=== PATIENT | male | born 1950 | race Caucasian/White ===

== ENCOUNTER 2022-10-23 16:08 | Emergency (ER) | payer MEDICARE ==
[~2022-10-23] VITALS: Ht 172.7 cm; Wt 83.0 kg
--- NOTE | 2022-10-23 19:01 | NUR ---
Pt placed into a hard c collar with provider present and slide board with staff onto [facility] and in room 9. No neurovascular issues pre or post c collar placement or problems with moving him over.
[2022-10-23 19:05] LABS: BASOPHILS % (AUTO) 0.5 % (0-1); EOSINOPHILS # (AUTO) 0.1 X10'3 (0-0.9); EOSINOPHILS % (AUTO) 1.6 % (0-6); HEMOGLOBIN 15.8 g/dl (14.0-17.9); LYMPHOCYTES # (AUTO) 1.5 X10'3 (1.1-4.8); LYMPHOCYTES % (AUTO) 17.9 % (21-51); MEAN CORPUSCULAR HEMOGLOBIN 29.5 PG (27.0-31.0); MEAN CORPUSCULAR HGB CONC 32.8 g/dL (33.0-36.5); MEAN CORPUSCULAR VOLUME 89.8 FL (78-98); MEAN PLATELET VOLUME 7.6 FL (7.4-10.4); MONOCYTES # (AUTO) 0.7 X10'3 (0-0.9); MONOCYTES % (AUTO) 8.3 % (2-12); NEUTROPHILS # (AUTO) 6.1 X10'3 (1.8-7.7); NEUTROPHILS % (AUTO) 71.7 % (42-75); PLATELET COUNT 328 X10'3 (140-440); RED BLOOD COUNT 5.34 X10'6 (4.70-6.10); RED CELL DISTRIBUTION WIDTH 12.7 % (11.5-14.5); WHITE BLOOD COUNT 8.5 X10'3 (4.5-11.0)
[2022-10-23 19:17] LABS: ALANINE AMINOTRANSFERASE 25 U/L (12-78); ALBUMIN/GLOBULIN RATIO 1.3 (1.1-1.5); ALKALINE PHOSPHATASE 72 IU/L (46-116); ANION GAP 5 (8-16); ASPARTATE AMINO TRANSFERASE 16 U/L (10-37); BILIRUBIN,TOTAL 0.5 MG/DL (0.1-1.0); BLOOD UREA NITROGEN 20 MG/DL (7-18); BUN/CREATININE RATIO 14.7 (5.4-32.0); CALCIUM 9.1 MG/DL (8.5-10.1); CHLORIDE 102 MMOL/L (99-107); CREATININE 1.36 MG/DL (0.60-1.10); GLUCOSE 116 MG/DL (70-104); POTASSIUM 3.6 MMOL/L (3.5-5.1); SODIUM 136 MMOL/L (135-145); TOTAL CARBON DIOXIDE 28.6 MMOL/L (24-32); TOTAL PROTEIN 7.2 G/DL (6.4-8.2); eGFR 52 ML/MIN
[2022-10-23 19:20] LABS: APTT 28 SECONDS (22-32)
[2022-10-23] MEDS ORDERED: morphine 2 MG/ML inj. syringe IV ONE (19:30)
[2022-10-23] MEDS ORDERED: ondansetron/PF 4mg/2ml inj IV ONE (19:30)
[2022-10-23] MEDS ORDERED: normal saline 1000ML IV soln IVB ONE (19:30)
--- NOTE | 2022-10-23 20:09 | NUR ---
PULLED IV MORPHINE AND ZOFRAN UNDER MY NAME, HAD CHRISTEL RAE ADMINISTER VIA IV.
[2022-10-23 21:04] VITALS: BP 152/87
--- NOTE | 2022-10-23 21:08 | NUR ---
LINDSAY [phone] -
--- NOTE | 2022-10-23 21:53 | NUR ---
CALLED REPORT TO KHANH MOON, NURSE STEFFANY BALDERAS AND ACCEPTED REPORT THE RECEIVING NURSE. ETA FOR FLIGHT CREW FIVE MINUTES.
== END 2022-10-23 22:30 | disposition short-term general hospital (02) ==
LOC: ER 16:10
DX: S12.01XA Stable burst fracture of first cervical vertebra, initial encounter for closed fracture (principal); Z20.822 Contact with and (suspected) exposure to COVID-19; W19.XXXA Unspecified fall, initial encounter; Y93.89 Activity, other specified; Y92.89 Other specified places as the place of occurrence of the external cause; Y99.8 Other external cause status
CPT/HCPCS: 36415; 72125; 80053; 85025; 85610; 85730; 87635; 96374; 96375; 99285; C9803; J2270; J2405; J7030; J7040